=== PATIENT | male | born 1965 | race African-American/Black ===

== ENCOUNTER 2020-06-12 00:29 | Emergency (ER) | payer OTHER ==
[~2020-06-12] VITALS: Ht 182.9 cm; Wt 77.1 kg
[2020-06-12 01:29] LABS: BASOPHILS 0.6 % (0.0-2.0); EOSINOPHILS 0.8 % (0.0-3.0); HEMATOCRIT 41.4 % (42.0-52.0); HEMOGLOBIN 14.1 gm/dL (14.0-18.0); LYMPHOCYTES 29.8 % (24.0-44.0); MCH 30.4 pg (26.0-34.0); MCV 89.2 fL (80.0-100.0); MONOCYTES 7.5 % (1.0-8.0); PLATELET COUNT 320 thou/uL (150-400); POLYS 61.3 % (36.0-66.0); RBC 4.64 mil/uL (4.50-6.00); RDW 15.5 % (10.5-14.5); WBC 14.8 thou/uL (4.0-11.0)
[2020-06-12 02:18] LABS: ANION GAP 11 mmol/L (7-16); BUN 11 mg/dL (7-18); CALCIUM 9.1 mg/dL (8.5-10.1); CHLORIDE 104 mmol/L (98-107); CO2 26 mmol/L (21-32); CREATININE 0.9 mg/dL (0.7-1.3); GLUCOSE 131 mg/dL (74-106); POTASSIUM 3.9 mmol/L (3.5-5.1); SODIUM 141 mmol/L (136-145)
[2020-06-12 02:28] LABS: ALBUMIN 3.7 g/dL (3.4-5.0); DIRECT BILIRUBIN 0.1 mg/dL (<0.1-0.2); SGOT 30 U/L (15-37); SGPT 23 U/L (30-65); TOTAL BILIRUBIN 0.4 mg/dL (0.2-1.0); TOTAL PROTEIN 8.5 g/dL (6.4-8.2); TROPONIN-I <0.06 ng/mL (<0.06)
[2020-06-12] MEDS ORDERED: ZOFRAN ODT4 MG PO (05:31)
[2020-06-12] MEDS ORDERED: BENTYL 20 MG TA20 M1 PO (05:31)
[2020-06-12 06:11] VITALS: BP 130/73
--- NOTE | 2020-06-12 10:55 | EKG ---
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
== END 2020-06-12 06:11 | disposition home or self-care (01) ==
LOC: ER 00:29
PROVIDERS: Emergency Medicine
DX: R10.12 Left upper quadrant pain (principal); E87.2 Acidosis; Z88.0 Allergy status to penicillin